=== PATIENT | male | born 1985 | race African-American/Black ===

== ENCOUNTER 2018-10-24 21:18 | Emergency (ER) | payer MEDICAID ==
[~2018-10-24] VITALS: Ht 175.3 cm; Wt 75.5 kg
[2018-10-24] MEDS ORDERED: TETANUS, DIPHTHERIA, PERTUSSIS VAC/PF 0.5ML (>7YR OLD) IM ONE (22:30)
[2018-10-24] MEDS ORDERED: AMPICILLIN SOD/SULBACTAM NA 3 G in SODIUM CHLORIDE 0.9% 100 ML IV SCH (23:30)
[2018-10-25] MEDS ORDERED: AMPICILLIN SOD/SULBACTAM NA 3 G in SODIUM CHLORIDE 0.9% 100 ML IV SCH ×2
[2018-10-25] MEDS ORDERED: SULBACTAM NA IM SCH (00:15)
[2018-10-25] MEDS ORDERED: AMPICILLIN SODIUM IM SCH (00:15)
[2018-10-25] MEDS ORDERED: IBUPROFEN 600MG TABLET PO ONE (00:45)
[2018-10-25 01:07] VITALS: BP 117/78
== END 2018-10-25 03:29 | disposition home or self-care (01) ==
LOC: ER 21:18
DX: S61.230A Puncture wound without foreign body of right index finger without damage to nail, initial encounter (principal); F17.200 Nicotine dependence, unspecified, uncomplicated; F12.10 Cannabis abuse, uncomplicated; W54.0XXA Bitten by dog, initial encounter; Y93.89 Activity, other specified; Y92.89 Other specified places as the place of occurrence of the external cause; Y99.8 Other external cause status
CPT/HCPCS: 73130; 90471; 90715; 96372; 99283; J0295; J7050